=== PATIENT | male | born 1970 | race Two or more races ===

== ENCOUNTER 2025-06-16 00:19 | Emergency (ER) | payer OTHER ==
[~2025-06-16] VITALS: Ht 170.2 cm; Wt 77.5 kg
[2025-06-16] MEDS ORDERED: FLUT1SPR5 NAS (03:09)
[2025-06-16] MEDS ORDERED: PSEU120T2 PO (03:09)
--- NOTE | 2025-06-16 03:10 | ED.PDOC ---
Eye-HPI HPI Comments PT PRESENTED TO ED FOR FLU-LIKE S/S: NASAL CONGESTION W/O RELIEF OF ANTIHISTAMINES. DENIES FEVER, CHILLS, NAUSEA, VOMITING, DIFFICULTY BREATHING, SHORTNESS BREATH, OR CHEST PAIN Chief Complaint: Flu like Time Seen by MD: 00:26 Reviewed Notes: Nurses Notes, Medications, Allergies Allergies: Coded Allergies: No Known Drug Allergy (Verified Allergy, Unknown, 06/16/25) Information Source: Patient Mode of Arrival: Ambulatory Past Medical History PAST MEDICAL HISTORY: Denies Surgical History: Denies all surgeries Family History Family History: Unknown Social History Smoker: Non-Smoker Alcohol: Denies ETOH Use Drugs: Denies Drug Use All Other Systems: Reviewed and Negative (see hpi) Physical Exam General Appearance: No Apparent Distress, Normal HEENT: Normal ENT Inspection, Pharynx Normal, TMs Normal Neck: Full Range of Motion, Non-Tender Respiratory: Lungs Clear, No Respiratory Distress, Normal Breath Sounds Cardiovascular: No Edema, No JVD, No Murmur, No Gallop, Normal Peripheral Pulses, Regular Rate/Rhythm Breast Exam: Deferred Gastrointestinal: No Organomegaly, Non Tender, No Pulsatile Mass, Normal Bowel Sounds, Soft Genitalia: Deferred Pelvic: Deferred Rectal: Deferred Extremities: Normal range of motion Musculoskeletal : Apperance: Normal Neurologic: Alert, No Motor Deficits, Normal Affect, Normal Mood, No Sensory Deficits Cerebellar Function: Normal Reflexes: NOT DONE Skin: Dry, Normal Color, Warm Lymphatic: No Adenopathy Was a procedure done? Was a procedure done?: No EENT DIFF Eye: N/A Ear: Otitis Media, Pharyngitis Sore Throat: Peritonsillar Abscess, Peritonsillar Cellulitis, Pharyngitis, Streptococcal, Viral Pharyngitis, URI X-Ray, Labs, Meds, VS Vital Signs Date Time Temp Pulse Resp B/P (MAP) Pulse Ox O2 Delivery O2 Flow Rate FiO2 06/16/25 03:15 81 16 96 Room Air 06/16/25 03:15 97.9 81 16 142/93 (109) 97.9 06/16/25 00:20 97.8 97 18 148/89 99 97.8 Time of 1ST Reevaluation: 00:26 Reevaluation 1ST: Unchanged Time of 2ND Reevaluation: 03:02 Reevaluation 2ND: Improved Patient Education/Counseling: Diagnosis, Treatment Family Education/Counseling: No Family Present SEPSIS Sepsis Screen Date sepsis recognized/suspect: Jun 16, 2025 Time Sepsis recognized/suspect: 0022 Recent Procedure: No On Antibiotic Therapy: No Respiratory Rate >20: No Heart Rate >90: No Temp<36 C (96.8 F) or >38.3 C: No SBP <90 or MAP <65 mmHG: No New Acute Mental Status Change: No Is the patient on CPAP, BIPAP,: No Vital Signs Date Time Temp Pulse Resp B/P (MAP) Pulse Ox O2 Delivery O2 Flow Rate FiO2 06/16/25 03:15 81 16 96 Room Air 06/16/25 03:15 97.9 81 16 142/93 (109) 97.9 06/16/25 00:20 97.8 97 18 148/89 99 97.8 Departure 1 Departure Time of Disposition: 03:06 Impression: Primary Impression: Nasal congestion Disposition: 01 HOME / SELF CARE / HOMELESS Condition: Stable Discharged With: Self Critical Care Note Critical Care Time?: No Stability Stability form required: TERRY Crawford Jun 16, 2025 03:10
[2025-06-16 03:15] VITALS: BP 142/93; PULSE 81; RESP 16; TEMP 97.9; O2SAT 96
[2025-06-16] MEDS ORDERED: PSEUDOEPHEDRINE HCL 30 MG TAB PO ONE (03:15)
== END 2025-06-16 03:31 | disposition home or self-care (01) ==
LOC: ER 00:19
DX: R09.81 Nasal congestion (principal); Z79.899 Other long term (current) drug therapy
CPT/HCPCS: 96372; 99283; J1100